=== PATIENT | male | born 1990 | race Caucasian/White ===

== ENCOUNTER 2019-02-01 17:22 | Emergency (ER) | payer SELFPAY ==
[~2019-02-01] VITALS: Ht 185.4 cm; Wt 108.9 kg
--- OUTSIDE RECORDS SUMMARY | 2019-02-01 17:28 | XMS REPORT | Referral Summary ---
Author Author [facility] Organization [facility] Address Unknown Phone Unavailable Care Team Providers Care Chiropractic Doctor Name Role Phone Tomasz Goodman PCP Encounter VC Date(s): 02/18/15 - 02/18/15 [facility] [address] [place] [address] [phone] Discharge Diagnosis: Low back strain Final: LUMBAR SPRAIN Final: Overexertion from sudden strenuous movement Final: ACCIDENTS OCCURRING IN PUBLIC BUILDING Discharge Disposition: 01-Home or Self Care Attending Physician: Rey Newberry MD Admitting Physician: Rey Newberry MD Vital Signs Most recent to 1 oldest [Reference Range]: Temperature Oral 36.7 degC [35.8-37.3 degC] (02/18/15 2:44 PM) Peripheral Pulse 90 bpm Rate [60-100 bpm] (02/18/15 2:44 PM) Respiratory Rate 18 br/min [14-20 br/min] (02/18/15 2:44 PM) Blood Pressure 135/89 mmHg [90-140/60-90 mmHg] (02/18/15 2:44 PM) SpO2 97 % (02/18/15 2:44 PM) Problem List Condition Effective Dates Status Health Status Informant No Chronic Problems Active Tobacco Active patient user(Confirmed) Allergies, Adverse Reactions, Alerts No Known Medication Allergies Medications hydrOXYzine 0 Refill(s) Start Date: 02/18/15 Status: Ordered naproxen 500 mg oral tablet 500 mg 1 tabs, Oral, BID, as needed for pain, # 20 tabs, 0 Refill(s) Start Date: 02/18/15 Status: Ordered ranitidine 0 Refill(s) Start Date: 02/18/15 Status: Ordered Strattera Oral, qAM, 0 Refill(s) Start Date: 02/18/15 Status: Ordered Results No data available for this section Immunizations No data available for this section Procedures No data available for this section Social History Social History Type Response Smoking Status Current every day smoker; Type: Cigarettes; Tobacco use per day: Less than Pack Assessment and Plan No data available for this section
--- OUTSIDE RECORDS SUMMARY | 2019-02-01 17:28 | XMS REPORT ---
Author Author Tomasz Goodman [facility] Address [address] [place] [address] Care Team Providers Care Ehs Engineer Name Role Phone Tomasz Goodman Unavailable PROBLEMS Type Condition ICD9-CM Code WPR17-AE Code Onset Dates Condition Status SNOMED Code Problem Drug use disorder F19.90 Active 16340578 Problem Acute sinusitis, unspecified J01.90 Active 64067701 Problem Insomnia, unspecified 780.52 Active 993942459 Problem Chronic gastritis K29.50 Active 1769225 Problem Attention and concentration deficit R41.840 Active 27280462 ALLERGIES No Information ENCOUNTERS Encounter Location Date Diagnosis [facility] [place] [address] [place] [address] Mar, [facility] [place] [address] [place] [address] Mar, Attention and concentration deficit R41.840 and Drug use disorder F19.90 [facility] [place] [address] Jul, [facility] [place] [address] [place] [address] Jul, Acute sinusitis, unspecified J01.90 and Chronic gastritis K29.50 [facility] [place] [address] Jun, Attention and concentration deficit R41.840 [facility] [place] [address] [place] [address] Jun, [facility] [place] [address] [place] [address] May, [facility] [place] [address] May, [facility] [place] [address] [place] [address] Sep, [facility] [place] [address] Aug, Sinusitis, unspecified 461.9 [facility] [address] [place] [address] Jul, Sinusitis, unspecified 461.9 [facility] [address] [place] [address] Jun, [facility] [address] [place] [address] May, [facility] [address] [place] [address] May, [facility] [address] [place] [address] May, [facility] [address] [place] [address] May, [facility] [address] [place] [address] Apr, [facility] [address] [place] [address] Apr, [facility] [address] [place] [address] Apr, Attention deficit disorder 314.00 [facility] [address] [place] [address] December, Attention or concentration deficit 799.51 [facility] [address] [place] [address] Feb, [facility] [address] [place] [address] Feb, [facility] [address] [place] [address] Jan, [facility] [address] [place] [address] December, Sinusitis, unspecified 461.[address] [facility] [address] [place] [address] December, [facility] [address] [place] [address] Nov, [facility] [address] [place] [address] Oct, [facility] [address] [place] [address] Oct, [facility] [address] [place] [address] Sep, Insomnia, unspecified 780.52 and Attention or concentration deficit 799.51 [facility] [address] [place] [address] Aug, [facility] [address] [place] [address] Aug, [facility] [address] [place] [address] Aug, [facility] [address] [place] [address] Jul, [facility] [address] [place] [address] May, Insomnia, unspecified 780.52 and Attention or concentration deficit 799.51 [facility] [address] [place] [address] May, Pain in joint, ankle and foot 719.47 [facility] [address] [place] [address] May, [facility] [address] [place] [address] Mar, Health examination (School PX) V70.5 and Insomnia, unspecified 780.52 [facility] [address] [place] [address] December, [facility] [address] [place] [address] December, Adult Wellness Exam V70.0 [facility] [address] [place] [address] December, [facility] [address] [place] [address] Nov, [facility] [address] [place] [address] Nov, Insomnia, unspecified 780.52 and Attention or concentration deficit 799.51 [facility] [address] [place] [address] Nov, [facility] [address] [place] [address] Sep, [facility] [address] [place] [address] Aug, [facility] [address] [place] [address] Jun, [facility] [address] [place] [address] Jun, [facility] [address] [place] [address] Mar, [facility] [place] [address] [place] [address] Feb, [facility] [place] [address] [place] [address] Feb, [facility] [place] [address] [place] [address] Oct, [facility] [place] [address] [place] [address] Aug, [facility] [place] [address] [place] [address] Jul, [facility] [place] [address] [place] [address] Sep, [facility] [place] [address] [place] [address] Jan, [facility] [address] [address] Aug, IMMUNIZATIONS No Known Immunizations SOCIAL HISTORY Never Assessed REASON FOR VISIT Ranitidine script? PLAN OF CARE VITAL SIGNS MEDICATIONS Medication Instructions Dosage Frequency Start Date End Date Duration Status Ranitidine HCl 300 MG Orally Once a day 1 tablet 24h Mar, 30 day(s) Active RESULTS No Results PROCEDURES No Known procedures INSTRUCTIONS MEDICATIONS ADMINISTERED No Known Medications MEDICAL (GENERAL) HISTORY Type Description Date Medical History gastroesophageal reflux disease (GERD) Medical History attention deficit disorder, stopped his Adderal 01/2012 Medical History degenerative joint disease Medical History Anxiety, Prozac 40/day; xanax 0.5; #40; 04/2012. No more refills. Stopped prozac 09-24-12, he felt it had side effects Medical History He dropped out of [facility] 06-01-12; wants to try Vyvanase; visit with his mom 06-15-12, will try one month, if has other issues with questionalble usage patterns will not fill any more meds. 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 On probation until 08/2017. Spent alot of prison time last 4 years. Medical History 04-08-18, ADD, strattera 25 bid, gradually increase to 50 bid. Do adderall/vyvanase, consider drug testing before prescribing these meds Surgical History No Surgical history information
--- OUTSIDE RECORDS SUMMARY | 2019-02-01 17:28 | XMS REPORT | Referral Summary ---
Author Author [facility] Organization [facility] Address Unknown Phone Unavailable Care Team Providers Care Fisher Net Name Role Phone Tomasz Goodman PCP Encounter VC Date(s): 04/06/17 - 04/06/17 [facility] [address] [place] [address] Discharge Diagnosis: Thumb dislocation Discharge Disposition: 01-Home or Self Care Attending Physician: Rey Newberry MD Admitting Physician: Rey Newberry MD Vital Signs Most recent to 1 oldest [Reference Range]: Temperature Oral 36.2 degC [35.8-37.3 degC] (04/06/17 7:43 PM) Peripheral Pulse 73 bpm Rate [60-100 bpm] (04/06/17 7:43 PM) Heart Rate Monitored 65 bpm [60-100 bpm] (04/06/17 10:24 PM) Respiratory Rate 16 br/min [14-20 br/min] (04/06/17 10:24 PM) Blood Pressure 126/78 mmHg [90-140/60-90 mmHg] (04/06/17 10:24 PM) Mean Arterial 90 mmHg Pressure, Cuff (04/06/17 9:52 PM) SpO2 99 % (04/06/17 10:24 PM) Problem List Condition Effective Dates Status [...]
--- OUTSIDE RECORDS SUMMARY | 2019-02-01 17:28 | XMS REPORT ---
Author Author Tomasz Goodman Organization [employer] Address Unknown Phone Unavailable Care Team Providers Care Permit Agent Name Role Phone Tomasz Goodman Unavailable Allergies No Known Allergies Problems Problem Type Condition Code Onset Dates Condition Status Problem Adult Wellness Exam V70.0 Active Problem Insomnia, unspecified 780.52 Active Problem Attention deficit disorder 314.00 Active Problem Attention or concentration deficit 799.51 Active Medications Medication Code System Code Instructions Start Date End Date Status Dosage Marissaera [facility] [address]-94 80 mg Orally qD Apr 30, 2014 1 capsule Results No Known Results Summary Purpose [employer] Submission
--- OUTSIDE RECORDS SUMMARY | 2019-02-01 17:28 | XMS REPORT ---
Author Author Tomasz Goodman [facility] Address [address] [place] [address] Care Team Providers Care Steel Heater Name Role Phone Tomasz Goodman Unavailable PROBLEMS Type Condition ICD9-CM Code [id number] Code Onset Dates Condition Status SNOMED Code Problem Acute sinusitis, unspecified J01.90 Active 32403526 Problem Drug use disorder F19.90 Active 83936644 Problem Insomnia, unspecified 780.52 Active 002383933 Problem Attention and concentration deficit R41.840 Active 33132411 Problem Chronic gastritis K29.50 Active 6312689 ALLERGIES No Information ENCOUNTERS Encounter Location Date Diagnosis [facility] [address] [place] [address] Oct, Attention and concentration deficit R41.840 [facility] [place] [address] [place] [address] Sep, [facility] [address] [place] [address] Sep, [facility] [address] [place] [address] Aug, [facility] [address] [place] [address] Aug, Attention and concentration deficit R41.840 and Drug use disorder F19.90 [facility] [address] [place] [address] Jul, Bronchitis J40 [facility] [address] [place] [address] Mar, [facility] [address] [place] [address] Mar, Attention and concentration deficit R41.840 and Drug use disorder F19.90 [facility] [address] [place] [address] Jul, [facility] [address] [place] [address] Jul, Acute sinusitis, unspecified J01.90 and Chronic gastritis K29.50 [facility] [address] [place] [address] Jun, Attention and concentration deficit R41.840 [facility] [address] [place] [address] Jun, [facility] [address] [place] [address] May, [facility] [address] [place] [address] May, [facility] [address] [place] [address] Sep, [facility] [address] [place] [address] Aug, Sinusitis, unspecified 461.9 [facility] [address] [place] [address] Jul, Sinusitis, unspecified 461.9 [facility] [address] [place] [address] Jun, [facility] [address] [place] [address] May, [facility] [address] [place] [address] May, [facility] [address] [place] [address] May, [facility] [address] [place] [address] May, [facility] [address] [place] [address] Apr, [facility] [address] [place] [address] Apr, [facility] [address] [place] [address] Apr, Attention deficit disorder 314.00 [facility] [address] [place] [address] December, Attention or concentration deficit 799.51 [facility] [address] [place] [address] Feb, [facility] [address] [place] [address] Feb, [facility] [address] [place] [address] Jan, [facility] [address] [place] [address] December, Sinusitis, unspecified 461.9 [facility] [address] [place] [address] December, [facility] [address] [place] [address] Nov, [facility] [address] [place] [address] Oct, [facility] [address] [place] [address] Oct, [facility] [address] [place] [address] Sep, Insomnia, unspecified 780.52 and Attention or concentration deficit 799.51 [facility] [address] [place] [address] Aug, [facility] [address] [place] [address] Aug, [facility] [address] [place] [address] Aug, [facility] [address] [place] [address] Jul, [facility] [address] [place] [address] May, Insomnia, unspecified 780.52 and Attention or concentration deficit 799.51 [facility] [address] [place] [address] May, Pain in joint, ankle and foot 719.47 [facility] [address] [place] [address] May, [facility] [address] [place] [address] Mar, Health examination (School PX) V70.5 and Insomnia, unspecified 780.52 [facility] [address] [place] [address] December, [facility] [address] [place] [address] December, Adult Wellness Exam V70.0 [facility] [address] [place] [address] December, [facility] [address] [place] [address] Nov, [facility] [address] [place] [address] Nov, Insomnia, unspecified 780.52 and Attention or concentration deficit 799.51 [facility] [address] [place] [address] Nov, [facility] [address] [place] [address] Sep, [facility] [address] [place] [address] Aug, [facility] [address] [place] [address] Jun, [facility] [place] [address] [place] [address] Jun, [facility] [place] [address] [place] [address] Mar, [facility] [place] [address] [place] [address] Feb, [facility] [place] [address] [place] [address] Feb, [facility] [place] [address] [place] [address] Oct, [facility] [place] [address] [place] [address] Aug, [facility] [address] [place] [address] Jul, [facility] [address] [place] [address] Sep, [facility] [place] [address] [place] [address] Jan, [facility] [place] [address] [place] [address] Aug, IMMUNIZATIONS No Known Immunizations SOCIAL HISTORY Never Assessed REASON FOR VISIT Strattera Samples/Bella Cares PLAN OF CARE VITAL SIGNS MEDICATIONS Medication Instructions Dosage Frequency Start Date End Date Duration Status Strattera 25 mg Orally bid 1 capsule 12h 30 day(s) Active RESULTS No Results PROCEDURES No Known procedures INSTRUCTIONS MEDICATIONS ADMINISTERED No Known Medications MEDICAL (GENERAL) HISTORY Type Description Date Medical History gastroesophageal reflux disease (GERD) Medical History attention deficit disorder, stopped his Adderal 01/2012 Medical History degenerative joint disease Medical History Anxiety, Prozac 40/day; xanax 0.5; #40; 04/2012. No more refills. Stopped prozac 2-7-13, he felt it had side effects Medical History He dropped out of [employer] 06-01-12; wants to try Vyvanase; visit with his mom 06-15-12, will try one month, if has other issues with questionalble usage patterns will not fill any more meds. 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 On probation until 08/2017. Spent alot of nursing home time last 4 years. Medical History 04-08-18, ADD, strattera 25 bid, gradually increase to 50 bid. Do adderall/vyvanase, consider drug testing before prescribing these meds Medical History 09-16-18, [place] x 3 months, no alcohol/drugs, restart vanlafaxin 75 daily/stattera 25mg 1-2/day. Medical History 10-25-18, STER, back pain, fell down stairs at home yesterday. Thoracic spine xray normal, Flexeril. Surgical History No Surgical history information
--- OUTSIDE RECORDS SUMMARY | 2019-02-01 17:28 | XMS REPORT ---
Author Author Tomasz Goodman [facility] Address Unknown Phone Unavailable Care Team Providers Care Superintendent Distribution Name Role Phone Tomasz Goodman CP Unavailable Allergies, Adverse Reactions, Alerts Substance Reaction Event Type N.K.D.A. Info Not Available Non Drug Allergy Problems Problem Type Condition ICD-9 Code Onset Dates Condition Status Problem Adult Wellness Exam V70.0 Active Problem Insomnia, unspecified 780.52 Active Problem Attention deficit disorder 314.00 Active Problem Attention or concentration deficit 799.51 Active Assessment Sinusitis, unspecified 461.9 Active Medications Medication Code System Code Instructions Start Date End Date Status Dosage Ranitidine HCl [facility] [address]-92 300 MG ORAL QD (every day) May 22, 2011 Active 1 (one) TABLET Ciprofloxacin HCl [facility] [address]-51 500 MG Orally Twice a day Aug 24, 2014 Active 1 tablet Strattera [facility] [address]-01 25 MG Orally Twice a day Apr 30, 2014 Active 1 capsule Procedures Procedure Coding System Code Date OFFICE VISITEST PT CPT-4 77186 Aug 24, 2014 Vital Signs Date/Time: Aug 24, 2014 Blood Pressure Systolic 120 mm Hg Height 6 ft 2 in in Weight 247 lbs BMI 31.71 Index Temperature 98.3 F Blood Pressure Diastolic 64 mm Hg Results No Known Results Summary Purpose [employer] Submission
--- OUTSIDE RECORDS SUMMARY | 2019-02-01 17:28 | XMS REPORT ---
Author Author Tomasz Goodman [facility] Address [address] [place] [address] Care Team Providers Care Division Operations Manager Name Role Phone Tomasz Goodman Unavailable PROBLEMS Type Condition ICD9-CM Code [id number] Code Onset Dates Condition Status SNOMED Code Problem Drug use disorder F19.90 Active 93560768 Problem Acute sinusitis, unspecified J01.90 Active 37766845 Problem Insomnia, unspecified 780.52 Active 573249526 Problem Chronic gastritis K29.50 Active 9017844 Problem Attention and concentration deficit R41.840 Active 10258308 ALLERGIES No Known Allergies ENCOUNTERS Encounter Location Date Diagnosis [facility] [place] [address] [place] [address] Mar, Attention and concentration deficit R41.840 and Drug use disorder F19.90 [facility] [place] [address] [place] [address] Jul, [facility] [place] [address] Jul, Acute sinusitis, unspecified J01.90 and Chronic gastritis K29.50 [facility] [place] [address] Jun, Attention and concentration deficit R41.840 [facility] [place] [address] [place] [address] Jun, [facility] [place] [address] [place] [address] May, [facility] [place] [address] May, [facility] [place] [address] Sep, [facility] [place] [address] [place] [address] Aug, Sinusitis, unspecified 461.9 [facility] [place] [id number] Jul, Sinusitis, unspecified 461.9 [facility] [address] [place] [address] Jun, [facility] [address] [place] [address] May, [facility] [address] [place] [address] May, [facility] [address] [place] [address] May, [facility] [address] [place] [address] May, [facility] [address] [place] [address] Apr, [facility] [address] [place] [address] Apr, [facility] [address] [place] [address] Apr, Attention deficit disorder 314.00 [facility] [address] [place] [address] December, Attention or concentration deficit 799.51 [facility] [address] [place] [address] Feb, [facility] [address] [place] [address] Feb, [facility] [address] [place] [address] Jan, [facility] [address] [place] [address] December, Sinusitis, unspecified 461.[address] [facility] [address] [place] [address] December, [facility] [address] [place] [address] Nov, [facility] [address] [place] [address] Oct, [facility] [address] [place] [address] Oct, [facility] [address] [place] [address] Sep, Insomnia, unspecified 780.52 and Attention or concentration deficit 799.51 [facility] [address] [place] [address] Aug, [facility] [address] [place] [address] Aug, [facility] [address] [place] [address] Aug, [facility] [address] [place] [address] Jul, [facility] [address] [place] [address] May, Insomnia, unspecified 780.52 and Attention or concentration deficit 799.51 [facility] [address] [place] [address] May, Pain in joint, ankle and foot 719.47 [facility] [address] [place] [address] May, [facility] [address] [place] [address] Mar, Health examination (School PX) V70.5 and Insomnia, unspecified 780.52 [facility] [address] [place] [address] December, [facility] [address] [place] [address] December, Adult Wellness Exam V70.0 [facility] [address] [place] [address] December, [facility] [address] [place] [address] Nov, [facility] [address] [place] [address] Nov, Insomnia, unspecified 780.52 and Attention or concentration deficit 799.51 [facility] [address] [place] [address] Nov, [facility] [address] [place] [address] Sep, [facility] [address] [place] [address] Aug, [facility] [address] [place] [address] Jun, [facility] [address] [place] [address] Jun, [facility] [address] [place] [address] Mar, [facility] [address] [place] [address] Feb, [facility] [address] [place] [address] Feb, [facility] [address] [place] [address] Oct, [facility] [address] [place] [address] Aug, [facility] [address] [place] [address] Jul, [facility] [address] [place] [address] Sep, [facility] [address] [place] [address] Jan, [facility] [place] [address] [place] [address] Aug, IMMUNIZATIONS No Known Immunizations SOCIAL HISTORY Never Assessed REASON FOR VISIT MED CK PLAN OF CARE Activity Details Follow Up 2 Months Reason: VITAL SIGNS Weight 215.7 lbs 2018-04-08 Height 6 ft 2 in in 2018-04-08 BMI 27.69 kg/m2 2018-04-08 Blood pressure systolic 104 mm Hg 2018-04-08 Blood pressure diastolic 72 mm Hg 2018-04-08 MEDICATIONS Medication Instructions Dosage Frequency Start Date End Date Duration Status Strattera 25 mg Orally bid 1 capsule 12h Mar, 30 day(s) Active HydrOXYzine HCl 20mg 1 24h Active Strattera 80 mg Orally qD 1 capsule 24h Apr, Active Ranitidine HCl 300 MG ORAL QD (every day) 1 (one) TABLET May, 90 days Active RESULTS No Results PROCEDURES No Known [...] effects Medical History He dropped out of [facility] 06-01-12; wants to try Vyvanase; visit with his mom 06-15-12, will try one month, if has other issues with questionalble usage patterns will not fill any more meds. Discussed at length 06-15-12 Medical History Filled out forms for patient assistance for his Vyvanse 30/day, #90 Medical History VYVANASE #30 03-01-13, no more refills Medical History 01-03-14, recheck [facility] 10 [facility] for [facility] use: discussed no more stimulant meds Medical History 04-26-14, ADD, Strattera 25: Doing well on 25 bid, applied to get from [facility], forms filled out 05-20-14 Medical History 02-18-15, STER, back pain, Naproxsyn/ flexeril Medical History 04-06-17, SFER, thumb dislocation, reduced, no fractures: Playing basketball in [place]f/splint placed Medical History 04-08-18, released from [place], breaking parole for drug use/ stealing a car. On probation until 08/2017. Spent alot of [facility] time last 4 years. Medical History 04-08-18, ADD, strattera 25 bid, gradually increase to 50 bid. Do adderall/vyvanase, consider drug testing before prescribing these meds Surgical History No Surgical history information
--- OUTSIDE RECORDS SUMMARY | 2019-02-01 17:29 | XMS REPORT ---
Author Author Tomasz Goodman [facility] eClinicalWorks Address Unknown Phone Unavailable Care Team Providers Care Consumer Lending Manager Name Role Phone Tomasz Goodman Unavailable Allergies No Known Allergies Problems Problem Type Condition ICD-9 Code Onset Dates Condition Status Problem Adult Wellness Exam V70.0 Active Problem Insomnia, unspecified 780.52 Active Problem Attention deficit disorder 314.00 Active Problem Attention or concentration deficit 799.51 Active Medications No Known Medications Results No Known Results Summary Purpose eClinicalWorks Submission
--- OUTSIDE RECORDS SUMMARY | 2019-02-01 17:29 | XMS REPORT ---
Author Author Tomasz Goodman [facility] eClinicalWorks Address Unknown Phone Unavailable Care Team Providers Care Sales Advisory Manager Name Role Phone Tomasz Goodman Unavailable [...]
--- OUTSIDE RECORDS SUMMARY | 2019-02-01 17:29 | XMS REPORT ---
Author Author Tomasz Goodman [facility] eClinicalWorks Address Unknown Phone Unavailable Care Team Providers Care Head Of Insight Name Role Phone Tomasz Goodman CP Unavailable [...] Date End Date Status Dosage Ranitidine HCl [facility] [address]-02 300 MG ORAL QD (every day) May 22, 2011 Active 1 (one) TABLET Strattera [facility] [address]-18 25 MG Orally Twice a day Apr 30, 2014 Active 1 capsule Ciprofloxacin HCl [facility] [address]-65 500 MG Orally Twice a day Jul 20, 2014 Active 1 tablet Procedures Procedure Coding System Code Date Depo Medrol 80mg CPT-4 J1040 Jul 20, 2014 Administration Fee 18yrs and up 1st injection CPT-4 92669 Jul 20, 2014 OFFICE VISITEST PT CPT-4 84234 Jul 20, 2014 Celestone CPT-4 J0702 Jul 20, 2014 Vital Signs Date/Time: Jul 20, 2014 Blood Pressure Systolic 128 mm Hg Height 6 ft 2 in in Weight 254 lbs BMI 32.61 Index Temperature 97.8 F Blood Pressure Diastolic 74 mm Hg Results No Known Results Summary Purpose eClinicalWorks Submission
--- OUTSIDE RECORDS SUMMARY | 2019-02-01 17:29 | XMS REPORT ---
Author Author Tomasz Goodman [facility] eClinicalWorks Address Unknown Phone Unavailable Care Team Providers Care Plant And Equipment Worker Name Role Phone Tomasz Goodman Unavailable Allergies No Known Allergies Problems Problem Type Condition ICD-9 Code Onset Dates Condition Status Problem Adult Wellness Exam V70.0 Active Problem Insomnia, unspecified 780.52 Active Problem Attention deficit disorder 314.00 Active Problem Attention or concentration deficit 799.51 Active Medications No Known Medications Results No Known Results Summary Purpose eClinicalWorks Submission
--- OUTSIDE RECORDS SUMMARY | 2019-02-01 17:29 | XMS REPORT ---
Author Author Tomasz Goodman [facility] eClinicalWorks Address Unknown Phone Unavailable Care Team Providers Care Office Machine Inspector Name Role Phone Tomasz Goodman Unavailable Allergies No Known Allergies Problems Problem Type Condition Code Onset Dates Condition Status Problem Adult Wellness Exam V70.0 Active Problem Insomnia, unspecified 780.52 Active Problem Attention deficit disorder 314.00 Active Problem Attention or concentration deficit 799.51 Active Medications No Known Medications Results No Known Results Summary Purpose eClinicalWorks Submission
--- OUTSIDE RECORDS SUMMARY | 2019-02-01 17:29 | XMS REPORT ---
Author Author Tomasz Goodman [facility] eClinicalWorks Address Unknown Phone Unavailable Care Team Providers Care Wallpaper Scraper Name Role Phone Tomasz Goodman Unavailable Allergies No Known Allergies Problems Problem Type Condition ICD-9 Code Onset Dates Condition Status Problem Adult Wellness Exam V70.0 Active Problem Insomnia, unspecified 780.52 Active Problem Attention deficit disorder 314.00 Active Problem Attention or concentration deficit 799.51 Active Medications No Known Medications Results No Known Results Summary Purpose eClinicalWorks Submission
--- OUTSIDE RECORDS SUMMARY | 2019-02-01 17:29 | XMS REPORT ---
Author Author Tomasz Goodman [facility] eClinicalWorks Address Unknown Phone Unavailable Care Team Providers Care Surgical Supervisor Name Role Phone Tomasz Goodman CP Unavailable Allergies, Adverse Reactions, Alerts Substance Reaction Event Type N.K.D.A. Info Not Available Non Drug Allergy Problems Problem Type Condition Code Onset Dates Condition Status Assessment Acute sinusitis, unspecified J01.90 Active Assessment Chronic gastritis K29.50 Active Problem Chronic gastritis K29.50 Active Problem Attention and concentration deficit R41.840 Active Problem Acute sinusitis, unspecified J01.90 Active Problem Insomnia, unspecified 780.52 Active Problem Attention or concentration deficit 799.51 Active Problem Attention deficit disorder 314.00 Active Problem Adult Wellness Exam V70.0 Active Medications Medication Code System Code Instructions Start Date End Date Status Dosage HydrOXYzine HCl [facility] [address]-69 20mg qd 1 Strattera [facility] [address]-59 80 mg Orally qD Apr 30, 2014 1 capsule Keflex [facility] [address]-59 500 MG Orally BID Jul 26, 2015 1 capsule Ranitidine HCl [facility] [address]-99 300 MG ORAL QD (every day) May 22, 2011 1 (one) TABLET Procedures Procedure Coding System Code Date OFFICE VISITEST PT CPT-4 80525 Jul 26, 2015 Vital Signs Date/Time: Jul 26, 2015 Blood Pressure Systolic 104 mm Hg Height 6 ft 2 in in Weight 251 lbs BMI 32.22 Index Temperature 98.4 F Blood Pressure Diastolic 76 mm Hg Results No Known Results Summary Purpose eClinicalWorks Submission
--- OUTSIDE RECORDS SUMMARY | 2019-02-01 17:29 | XMS REPORT ---
Author Author Tomasz Goodman [facility] eClinicalWorks Address Unknown Phone Unavailable Care Team Providers Care Refinery Operator Coking Name Role Phone Tomasz Goodman Unavailable Allergies No Known Allergies Problems Problem Type Condition Code Onset Dates Condition Status Problem Chronic gastritis K29.50 Active Problem Attention and concentration deficit R41.840 Active Problem Acute sinusitis, unspecified J01.90 Active Problem Insomnia, unspecified 780.52 Active Problem Attention or concentration deficit 799.51 Active Problem Attention deficit disorder 314.00 Active Problem Adult Wellness Exam V70.0 Active Medications No Known Medications Results No Known Results Summary Purpose eClinicalWorks Submission
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
[2019-02-01] MEDS ORDERED: METH4TAB PO (17:56)
[2019-02-01] MEDS ORDERED: AZIT250T12 PO (17:56)
--- NOTE | 2019-02-01 17:57 | ED Cough/URI ---
General Chief Complaint: Cough/Cold/Flu Symptoms Stated Complaint: COUGH Nursing Triage Note: Pt amb to triage w/o difficulty. a&ox4. c/o cough and headache for approx x1 wk. Pt reports to be coughing up green/brown phlegm. Reports increase in cough @ noc. Denies recent fever or chills. Sepsis Screen: No Definite Risk Source: patient Exam Limitations: no limitations History of Present Illness Date Seen by Provider: Feb 01, 2019 Time Seen by Provider: 17:54 Initial Comments To ER per private vehicle from home with reports of a one-week history of productive cough and nasal congestion. No fever. Otherwise healthy. Timing/Duration: constant, week Severity/Quality: productive cough Associated Symptoms: cough Allergies and Home Medications Allergies Coded Allergies: No Known Drug Allergies (Unverified , 02/01/19) Home Medications Azithromycin 250 Mg Tablet, 250 MG PO UD TAKE 2 TABLETS ON DAY ONE THEN TAKE 1 TABLET DAILY FOR FOUR MORE DAYS Prescribed by: PARAG HOUSE on 02/01/191755 Methylprednisolone 4 Mg Tab.ds.pk, 4 MG PO UD PER DOSE PACK INSTRUCTIONS Prescribed by: PARAG HOUSE on 02/01/191755 Patient Home Medication List Home Medication List Reviewed: Yes Review of Systems Review of Systems Constitutional: see HPI; No chills, No fever EENTM: see HPI, nose congestion Respiratory: see HPI, cough Cardiovascular: no symptoms reported Genitourinary: no symptoms reported Musculoskeletal: no symptoms reported Skin: no symptoms reported Psychiatric/Neurological: No Symptoms Reported Hematologic/Lymphatic: No Symptoms Reported Past [id number]-Lretjv-Cerhbx Hx Patient Social History Alcohol Use: Denies Use Recreational Drug Use: No Smoking Status: Current Everyday Smoker Type Used: Electronic/Vapor 2nd Hand Smoke Exposure: No Recent Foreign Travel: No Contact w/Someone Who Travel: No Recent Infectious Disease Expo: No Recent Hopitalizations: No Seasonal Allergies Seasonal Allergies: No Past Medical History Surgeries: No Respiratory: No Cardiac: No Neurological: No Genitourinary: No Gastrointestinal: Yes (GERD) Musculoskeletal: No Endocrine: No HEENT: No Cancer: No Psychosocial: Yes ADD/ADHD Integumentary: No Physical Exam Vital Signs - First Documented 02/01/19 17:37 Temp 98.7 Pulse 85 Resp 19 B/P (MAP) 117/85 (96) Pulse Ox 96 O2 Delivery Room Air Capillary Refill : Less Than 3 Seconds Height: 6'1.00" Weight: 240lbs. oz. 108.786784lu; BMI Method:Stated General Appearance: WD/WN, no apparent distress Eyes: Bilateral Eye Normal Inspection, Bilateral Eye PERRL, Bilateral Eye EOMI HEENT: PERRL/EOMI, normal ENT inspection Neck: non-tender, full range of motion Respiratory: lungs clear, normal breath sounds, no respiratory distress, no accessory muscle use Cardiovascular: regular rate, rhythm, no murmur Gastrointestinal: normal bowel sounds, non tender, soft Neurologic/Psychiatric: alert, normal mood/affect, oriented x 3 Skin: normal color, warm/dry Progress/Results/Core Measures Suspected Sepsis Recent Fever Within 48 Hours: No Infection Criteria Present: Suspected New Infection New/Unexplained Altered Menta: No Sepsis Screen: No Definite Risk SIRS Temperature:98.7 Pulse: 85 Respiratory Rate: 19 Blood Pressure 117 /85 Mean: 96 Results/Orders My Orders Orders - PARAG HOUSE APRN Chest Pa/Lat (2 View) (02/01/19 17:51) Vital Signs/I&O 02/01/19 02/01/19 17:37 17:37 Temp 98.7 Pulse 85 Resp 19 B/P (MAP) 117/85 (96) Pulse Ox 96 O2 Delivery Room Air Room Air Capillary Refill : Less Than 3 Seconds Blood Pressure Mean: 96 Departure Impression Primary Impression: Bronchitis Disposition: 01 HOME, SELF-CARE Condition: Stable Departure-Patient Inst. Decision time for Depature: 17:55 Referrals: NO,LOCAL PHYSICIAN (PCP/Family) Primary Care Physician Patient Instructions: Acute Bronchitis, Adult (DC) Add. Discharge Instructions: 1. Medication as directed 2. Return to ER for any concerns 3. Follow-up with your doctor later this week for recheck. All discharge instructions reviewed with patient and/or family. Voiced understanding. Scripts Methylprednisolone (Medrol) 4 Mg Tab.ds.pk 4 MG PO UD for 6 Days, #21 PKG PER DOSE PACK INSTRUCTIONS Prov: PARAG HOUSE APRN 02/01/19 Azithromycin (Azithromycin) 250 Mg Tablet 250 MG PO UD, #6 TAB TAKE 2 TABLETS ON DAY ONE THEN TAKE 1 TABLET DAILY FOR FOUR MORE DAYS Prov: PARAG HOUSE APRN 02/01/19 Work/School Note: Work Release Form Date Seen in the Emergency Department: Feb 01, 2019 Return to Work: Feb 02, 2019 PARAG HOUSE APRN Feb 01, 2019 17:57
--- NOTE | 2019-02-01 18:05 | Diagnostic Imaging Report ---
INDICATION: Cough. Shortness of breath. Migraine. FINDINGS: PA and lateral chest. The lungs are well aerated. There is no air trapping. There are no infiltrates. Heart is not enlarged. No pulmonary edema or hilar adenopathy. No pneumothorax or pleural effusion. No bony abnormalities. IMPRESSION: Normal PA and lateral chest. Dictated by: Dictated on workstation # [id number]
[2019-02-01 18:19] VITALS: BP 117/85
== END 2019-02-01 18:29 | disposition home or self-care (01) ==
LOC: ER 17:23
DX: J40 Bronchitis, not specified as acute or chronic (principal); K21.9 Gastro-esophageal reflux disease without esophagitis; F90.9 Attention-deficit hyperactivity disorder, unspecified type; F17.290 Nicotine dependence, other tobacco product, uncomplicated; Z79.52 Long term (current) use of systemic steroids
CPT/HCPCS: 71046